=== PATIENT | male | born 1965 | race Caucasian/White ===

== ENCOUNTER → 2020-10-13 | Day surgery (SDC) | payer OTHER ==
[2020-10-10 14:45] LABS: BASOPHILS % (AUTO) 1.7 % (0.0-2.0); EOSINOPHILS % (AUTO) 2.3 % (1.0-6.0); HEMATOCRIT 49.1 % (41-53); HEMOGLOBIN 16.5 g/dL (13.5-17.5); LYMPHOCYTES % (AUTO) 31.1 % (22.0-44.0); MEAN CORPUSCULAR HEMOGLOBIN 29.8 pg (26.0-34.0); MEAN CORPUSCULAR HGB CONC 33.6 G/dL (31.0-37.0); MEAN CORPUSCULAR VOLUME 89 fL (80-100); MONOCYTES # (AUTO) 0.5 K/uL (0.1-1.0); MONOCYTES % (AUTO) 7.5 % (2.0-9.0); NEUTROPHILS # (AUTO) 3.7 K/uL (1.8-7.7); NEUTROPHILS % (AUTO) 57.4 % (40.0-70.0); PLATELET COUNT (AUTO) 212 K/uL (150-450); RED BLOOD CELL COUNT(AUTO) 5.54 MIL/uL (4.50-5.90)
[2020-10-10 14:58] LABS: ANION GAP 10 mmol/L (8-16); CARBON DIOXIDE 28 mmol/L (22-29); CHLORIDE 100 mmol/L (98-107); CREATININE 0.95 mg/dL (0.60-1.30); GLUCOSE,RANDOM 105 mg/dL (70-110); POTASSIUM 3.8 mmol/L (3.5-5.1); PROTHROMBIN TIME 10.8 SEC (9.4-11.6); SODIUM SERUM 138 mmol/L (136-145); UREA NITROGEN, BLOOD 15 mg/dL (7-18)
[2020-10-10 14:59] LABS: CALCIUM, TOTAL 9.3 mg/dL (8.8-10.5); GLOMERULAR FILTR. RATE CALC > 60 mL/min (>60)
[2020-10-10 15:05] LABS: ALANINE AMINOTRANSFERASE 39 U/L (12-78); ALBUMIN 4.8 g/dL (3.4-5.0); ALKALINE PHOSPHATASE 99 U/L (46-116); ASPARTATE AMINOTRANSFERASE 21 U/L (15-37); BILIRUBIN,TOTAL 1.2 mg/dL (0.1-1.0); TOTAL PROTEIN, SERUM 8.8 g/dL (6.4-8.2)
[2020-10-10 15:28] LABS: COVID AG,FIA SOURCE NASOPHARYNGEAL
[~2020-10-13] VITALS: Ht 160 cm; Wt 70.5 kg
[~2020-10-13] MED LIST: ASPI-728 PO; ATOR20TA86 PO; BUDE10.22 IH; CETI-450 PO; CLOP-31 PO; DAPA10TA PO; FELO25ER PO; FentaNYL CITRATE-PF 100 MCG/2 ML VIAL IVP ONE; FentaNYL CITRATE-PF 100 MCG/2 ML VIAL ONE; HEPARIN SODIUM 1000 UNITS/NS 1,000 ML IARTER ONE; HEPARIN SODIUM 1000 UNITS/NS 1,000 ML ONE; HYDROCODONE/ACETAMINOPHEN 5-325 MG TABLET PO PRN; IOHEXOL 300 MG/ML 150 ML VIAL IARTER ONE; IOHEXOL 300 MG/ML 150 ML VIAL ONE; ISOS30TA6 PO; LIDOCAINE 1% 30 ML/SOD BICARB 8.4% 4 ML SQ ONE; LIDOCAINE/PF 1% 30 ML VIAL ONE; LOSA50TA37 PO; METF-960 PO; METO25 PO; MIDAZOLAM HCL 2 MG/2 ML VIAL IVP ONE; MIDAZOLAM HCL 2 MG/2 ML VIAL ONE; MONT-35 PO; MULT-1297 PO; NITROGLYCERIN 50 MG/D5% WATER 250 ML ONE; NITROGLYCERIN/D5W 50 MG/250 ML IV BOTTLE ICOR ONE; OMEG-102 PO; SODIUM BICARBONATE 50 MEQ/50 ML VIAL ONE; SODIUM CHLORIDE 0.9% 0 ML ONE; SODIUM CHLORIDE 0.9% 1,000 ML IV ONE; SODIUM CHLORIDE 0.9% 1,000 ML ONE; SODIUM CHLORIDE 0.9% 500 ML IV ONE
[2020-10-13 07:59] LABS: GLUCOMETER DEV NAME(LOC) SDS.; GLUCOSE,POINT OF CARE 116 MG/DL (70-110)
[2020-10-13 09:07] VITALS: BP 144/85
[2020-10-13 10:42] VITALS: BP 147/89
== END | disposition home or self-care (01) ==
LOC: CATHLAB 06:31
PROVIDERS: ATTEND Internal Medicine Cardiovascular Disease
DX: R94.39 Abnormal result of other cardiovascular function study (principal); R07.9 Chest pain, unspecified; I25.10 Atherosclerotic heart disease of native coronary artery without angina pectoris; I25.2 Old myocardial infarction; E11.9 Type 2 diabetes mellitus without complications; I10 Essential (primary) hypertension; Z20.828 Contact with and (suspected) exposure to other viral communicable diseases; Z88.8 Allergy status to other drugs, medicaments and biological substances; Z95.5 Presence of coronary angioplasty implant and graft
CPT/HCPCS: 36415; 80053; 82962; 85025; 85610; 85730; 87426; 93458; 99152; 99153; C1760; C9803; J1644; J2250; J3010; J3490 ×3; J7030; Q9967

== ENCOUNTER → 2020-11-13 | Day surgery (SDC) | payer OTHER ==
[2020-11-10 16:52] LABS: COVID AG,FIA SOURCE NASOPHARYNGEAL
[~2020-11-13] MED LIST changes: -CLOP-31 PO; +CLOP75TA60 PO; +FentaNYL CITRATE PF 100 MCG/2 ML VIAL ONE; -FentaNYL CITRATE-PF 100 MCG/2 ML VIAL IVP ONE; -FentaNYL CITRATE-PF 100 MCG/2 ML VIAL ONE; -HEPARIN SODIUM 1000 UNITS/NS 1,000 ML IARTER ONE; -HEPARIN SODIUM 1000 UNITS/NS 1,000 ML ONE; -HYDROCODONE/ACETAMINOPHEN 5-325 MG TABLET PO PRN; -IOHEXOL 300 MG/ML 150 ML VIAL IARTER ONE; +IOHEXOL 300 MG/ML 50 ML VIAL ONE; +ISOS60TA4 PO; -LIDOCAINE 1% 30 ML/SOD BICARB 8.4% 4 ML SQ ONE; -LIDOCAINE/PF 1% 30 ML VIAL ONE; +METO50 PO; -MIDAZOLAM HCL 2 MG/2 ML VIAL IVP ONE; -NITROGLYCERIN/D5W 50 MG/250 ML IV BOTTLE ICOR ONE; -SODIUM BICARBONATE 50 MEQ/50 ML VIAL ONE; -SODIUM CHLORIDE 0.9% 1,000 ML ONE; -SODIUM CHLORIDE 0.9% 500 ML IV ONE; +VERAPAMIL HCL 2.5 MG/ML 2 ML VIAL ONE
== END | disposition home or self-care (01) ==
LOC: CATHLAB 12:10
PROVIDERS: ATTEND Internal Medicine Cardiovascular Disease
DX: I25.10 Atherosclerotic heart disease of native coronary artery without angina pectoris (principal); Z53.8 Procedure and treatment not carried out for other reasons
CPT/HCPCS: 87426; 93005; C9803; J2250; J3010; J3490; J7030; Q9967

== ENCOUNTER → 2022-10-07 | Outpatient (CLI) | payer OTHER ==
[~2022-10-07] MED LIST changes: +ASPI-1450 PO; -ASPI-728 PO; -FELO25ER PO; -FentaNYL CITRATE PF 100 MCG/2 ML VIAL ONE; -IOHEXOL 300 MG/ML 150 ML VIAL ONE; -IOHEXOL 300 MG/ML 50 ML VIAL ONE; -ISOS30TA6 PO; +ISOS30TA92 PO; -ISOS60TA4 PO; +LOSA-382 PO; -LOSA50TA37 PO; +METF-1211 PO; -METF-960 PO; -METO50 PO; -MIDAZOLAM HCL 2 MG/2 ML VIAL ONE; -NITROGLYCERIN 50 MG/D5% WATER 250 ML ONE; -SODIUM CHLORIDE 0.9% 0 ML ONE; -SODIUM CHLORIDE 0.9% 1,000 ML IV ONE; -VERAPAMIL HCL 2.5 MG/ML 2 ML VIAL ONE; +[UNRECOGNIZED DRUG - CODE] PO
== END | disposition home or self-care (01) ==
LOC: RADMN 14:47
PROVIDERS: ATTEND Psychiatry & Neurology Neurology
DX: R42 Dizziness and giddiness (principal)
CPT/HCPCS: 70551